=== PATIENT | male | born 2000 | race Caucasian/White ===

== ENCOUNTER 2023-08-28 23:38 | Emergency (ER) | payer MEDICAID, SELFPAY ==
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
[2023-08-29 01:55] VITALS: BP 140/72; PULSE 78; RESP 18; TEMP 36.8; O2SAT 98
[2023-08-29 03:04] VITALS: BP 118/73; PULSE 78; RESP 16; TEMP 36.8; O2SAT 97
[2023-08-29] MEDS: Acetaminophen 325 MG TABLET 975 MG PO (03:05)
--- NOTE | 2023-08-29 03:35 | PC.NURSE ---
Patient discharged, awaiting ride from mother.
--- NOTE | 2023-08-29 03:48 | PC.NURSE ---
Pt discharged, awaiting ride/pickup from mother. Waiting in bed 6 with s/o.
== END 2023-08-29 03:54 | disposition home or self-care (01) ==
PROVIDERS: Emergency Provider Emergency Medicine Emergency Medical Services
DX: R41.2 Retrograde amnesia (principal); S06.0X0A Concussion without loss of consciousness, initial encounter; S00.83XA Contusion of other part of head, initial encounter; V43.52XA Car driver injured in collision with other type car in traffic accident, initial encounter; Y93.89 Activity, other specified; Y92.410 Unspecified street and highway as the place of occurrence of the external cause; Y99.9 Unspecified external cause status
CPT/HCPCS: 70450; 72125; 99284